=== PATIENT | male | born 1965 | race Caucasian/White ===

== ENCOUNTER 2018-09-26 09:37 | Observation (INO) ==
[2018-09-26] MEDS ORDERED: Ondansetron 4 MG/2 ML VIAL IVP STA (11:10)
[2018-09-26] MEDS ORDERED: 0.9 % Sodium Chloride 1,000 ML IVC STA (11:10)
[2018-09-26] MEDS ORDERED: *HR* HYDROmorphone (PF) 1 MG/ML SYRINGE IVP ONE (11:11)
--- NOTE | 2018-09-26 11:15 | Emergency Department Note ---
Disposition Clinical Impression: Atrial fibrillation with RVR Acute appendicitis Qualifiers: Acute appendicitis type: with localized peritonitis Appendicitis gangrene presence: unspecified whether gangrene present Appendicitis perforation presence: without perforation Appendicitis abscess presence: without abscess Qualified Code(s): K35.30 - Acute appendicitis with localized peritonitis, wi thout perforation or gangrene Disposition: Admitted As Inpatient Condition: Good Referrals: Jasmin Singh, CIRCULATION LIBRARIAN [Primary Care Provider] - Forms: ED Satisfaction Letter, Work/School Release Time of Disposition: 12:01 General Adult HPI - General Chief complaint: ED Abdominal Pain Stated complaint: staff room visit-appy Time Seen by Provider: 09/26/18 09:56 Source: EMS Limitations: no limitations Nursing Notes Reviewed: Yes Vital Signs Reviewed: Yes - History of Present Illness HPI Narrative: 52-year-old male with history of A. fib not on anticoagulation who presents emergency department as transfer from [facility] secondary to acute appendicitis. Patient states his symptoms have been worse over the last few days he also feels nauseated. He denies any chest pain, feeling short of breath, changes in medications or missed doses. He denies any cough, congestion, fever, chills. Pain Scale: 10 - Related Data Home Medications Medication Instructions Recorded Confirmed Acyclovir [Zovirax] 400 mg PO BID 07/08/18 09/26/18 Albuterol Sulfate [Ventolin Hfa] 2 puff PO Q6H PRN 07/08/18 09/26/18 Aspirin [Lo-Dose Aspirin EC] 81 mg PO DAILY 07/08/18 09/26/18 Atenolol [Tenormin] 25 mg PO BID 07/08/18 09/26/18 Atorvastatin [Lipitor] 40 mg PO HS 07/08/18 09/26/18 Ergocalciferol (VITAMIN D2) 50,000 units PO MO 07/08/18 09/26/18 [Vitamin D2] Gabapentin [Neurontin] 800 mg PO BID PRN 07/08/18 09/26/18 HYDROcodone/Acet 5/325 mg [[place] 1 tab PO BID PRN 07/08/18 09/26/18 5-325 mg] Ibuprofen [Motrin] 600 mg PO BID PRN 07/08/18 09/26/18 Loratadine [Allergy Relief] 10 mg PO DAILY 07/08/18 09/26/18 Tizanidine HCl 4 mg PO BID 07/08/18 09/26/18 Fluticasone/Vilanterol [Breo 1 each IH BID 09/26/18 09/26/18 Ellipta 100-25 Mcg INH] Allergies Allergy/AdvReac Type Severity Reaction Status Date / Time No Known Allergies Allergy Verified 07/08/18 14:00 Review of Systems: ROS per history of present illness, all other systems reviewed and negative or normal. All systems ED: reviewed and negative except as stated. Review of Systems: As Per HPI Past Medical History - Past Medical History Medical history: Reports: asthma, atrial fibrillation, hyperlipidemia, hypertension, other Surgical history: Reports: herniorrhaphy, orthopedic, other, other Psychiatric history: Reports: no psych history - Social History Smoking Status: Never smoker Smokeless Tobacco Status: No Alcohol use: Reports: occasionally Drug use: Reports: none Physical Exam General: Conversant. No apparent distress. Follow commands. Appears stated age. Neck: No JVD. Trachea midline. Neck supple. Eyes: PERRL. No scleral icterus. HENT: Normocephalic and atraumatic. Moist mucus membranes. Cardiovascular: Irregularly irregular. Normal S1 and S2. No murmurs appreciated. Normal capillary refill. Extremities well perfused with 2+ distal pulses bilaterally. No edema. Pulmonary: Normal and equal breath sounds bilaterally, anteriorly and posteriorly. No wheezes, rales, or rhonchi. Not in respiratory distress. Speaks in full sentences. Abdomen: Soft, nondistended. There is tenderness and guarding especially in the RLQ. Rebound present. Neuro: Alert and oriented x3. No slurred speech. No focal deficits noted. Skin: No rashes noted on visualized skin. Musculoskeletal: No bony abnormalities visualized. Moves all extremities. Psych: Normal mood. Pleasant. Makes appropriate eye contact. - General Limitations: no limitations General appearance: alert Course Vital Signs Temperature 98.5 F 09/26/18 09:42 Pulse Rate 118 09/26/18 09:42 Respiratory Rate 20 09/26/18 09:42 Blood Pressure 160/100 09/26/18 09:42 O2 Sat by Pulse Oximetry 97 09/26/18 09:42 Temperature 98.5 F 09/26/18 09:42 Pulse Rate 108 09/26/18 11:48 Respiratory Rate 16 09/26/18 11:48 Blood Pressure 146/95 09/26/18 11:48 O2 Sat by Pulse Oximetry 98 09/26/18 11:48 Oxygen Delivery Oxygen Delivery Room Air Medical Decision Making - MDM Narrative Medical decision making narrative: 52-year-old male with history of atrial fibrillation who is transferred from [facility] secondary to acute appendicitis seen on CT abd/pelvis. The patient was initially a staff room visit to be seen only by the surgeon but patient did develop atrial fibrillation with rapid ventricular rate with rate in the 120s intermittently up to the 140s. Patient has no chest pain or shortness of breath. His vital signs are otherwise stable. He does appear to be in pain. He was given 1 L fluid bolus and started on maintenance fluids prior to transpor t, given his acute appendicitis to believe his increased rate is likely from pain and slight dehydration therefore he was given 1 L fluid bolus as well as repeat dose of dilaudid. Chest x-ray shows no acute changes. Patient has no elevation in troponin or concerning EKG changes for ischemia. Surgery evaluated the patient and deemed him surgical candidate and requested addition of zosyn. At this point do not believe the patient requires further rate control given there is an active source of his increased rate. We will admit to surgeon, Dr. Webster who will take the patient to the operating room. Patient agrees and understands the course of treatment plan including plan for admission. - Medical Records Medical records reviewed: Yes I reviewed the patient's medical records. - Lab Data Lab results reviewed: Yes I reviewed the patient's lab results. Lab Results 09/26/18 09/26/18 Range/Units 11:20 11:20 PT 12.1 (9.4-12.1) Seconds INR 1.1 APTT 28.4 (26.0-36.0) Seconds Troponin I < 0.03 (< 0.04) ng/mL - Radiology Data Radiology results reviewed: Yes I reviewed the patient's radiology results. Chest X-Ray 09/26/18 10:59 IMPRESSION: Minimal left basilar atelectasis or pneumonitis. D/ / Kenneyd Coleman MD / Kennedy Coleman MD Interpreting Provider: Kennedy Coleman MD - EKG Data EKG #1 EKG attestation: Yes I reviewed and interpreted this EKG. EKG results narrative: Atrial fibrillation rate of 106. Normal axis. No acute ischemic ST or T-wave abnormalities. When compared with prior rate has increased otherwise AFib persists.
[2018-09-26] MEDS ORDERED: Piperacillin/Tazobactam 3.375 GM in 0.9 % Sodium Chloride Mini Bag 100 ML IVPB ONE (11:16)
--- NOTE | 2018-09-26 11:28 | Emergency Department Note ---
Disposition Clinical Impression: Atrial fibrillation with RVR Acute appendicitis Qualifiers: Acute appendicitis type: with localized peritonitis Appendicitis gangrene presence: unspecified whether gangrene present Appendicitis perforation presence: without perforation Appendicitis abscess presence: without abscess Qualified Code(s): K35.30 - Acute appendicitis with localized peritonitis, wi thout perforation or gangrene Disposition: Admitted As Inpatient Condition: Good Time of Disposition: 12:01 General Adult HPI - General Chief complaint: ED Abdominal Pain Stated complaint: staff room visit-appy Time Seen by Provider: 09/26/18 09:56 Source: EMS Limitations: no limitations - History of Present Illness Pain Scale: 10 - Related Data Home Medications Medication Instructions Recorded Confirmed Acyclovir [Zovirax] 400 mg PO BID 07/08/18 09/26/18 Albuterol Sulfate [Ventolin Hfa] 2 puff PO Q6H PRN 07/08/18 09/26/18 Aspirin [Lo-Dose Aspirin EC] 81 mg PO DAILY 07/08/18 09/26/18 Atenolol [Tenormin] 25 mg PO BID 07/08/18 09/26/18 Atorvastatin [Lipitor] 40 mg PO HS 07/08/18 09/26/18 Ergocalciferol (VITAMIN D2) 50,000 units PO MO 07/08/18 09/26/18 [Vitamin D2] Gabapentin [Neurontin] 800 mg PO BID PRN 07/08/18 09/26/18 HYDROcodone/Acet 5/325 mg [[place] 1 tab PO BID PRN 07/08/18 09/26/18 5-325 mg] Ibuprofen [Motrin] 600 mg PO BID PRN 07/08/18 09/26/18 Loratadine [Allergy Relief] 10 mg PO DAILY 07/08/18 09/26/18 Tizanidine HCl 4 mg PO BID 07/08/18 09/26/18 Fluticasone/Vilanterol [Breo 1 each IH BID 09/26/18 09/26/18 Ellipta 100-25 Mcg INH] Allergies Allergy/AdvReac Type Severity Reaction Status Date / Time No Known Allergies Allergy Verified 07/08/18 14:00 Past Medical History - Past Medical History Medical history: Reports: asthma, atrial fibrillation, hyperlipidemia, hypertension, other Surgical history: Reports: herniorrhaphy, orthopedic, other, other Psychiatric history: Reports: no psych history - Social History Smoking Status: Never smoker Smokeless Tobacco Status: No Alcohol use: Reports: occasionally Drug use: Reports: none Physical Exam - General Limitations: no limitations General appearance: alert Course Vital Signs Temperature 98.5 F 09/26/18 09:42 Pulse Rate 118 09/26/18 09:42 Respiratory Rate 20 09/26/18 09:42 Blood Pressure 160/100 09/26/18 09:42 O2 Sat by Pulse Oximetry 97 09/26/18 09:42 Temperature 99.2 F 09/26/18 16:33 Pulse Rate 87 09/26/18 16:33 Respiratory Rate 14 09/26/18 16:33 Blood Pressure 128/75 09/26/18 16:33 O2 Sat by Pulse Oximetry 100 09/26/18 16:33 Oxygen Delivery Oxygen Delivery Room Air Medical Decision Making - Lab Data Lab Results 09/26/18 09/26/18 Range/Units 11:20 11:20 PT 12.1 (9.4-12.1) Seconds INR 1.1 APTT 28.4 (26.0-36.0) Seconds Troponin I < 0.03 (< 0.04) ng/mL Attestation Statement - Attestation Attestation: I examined this patient and my medical decision-making was reviewed with the Resident Physician. I agree with the documented findings, disposition and treatment plan as described except to the extent set forth below. Patient 52-year-old gentleman is transferred to our facility from an outside facility after he was found to have appendicitis. The patient has prior history of atrial fibrillation upon arrival at our facility had atrial fibrillation with rapid ventricular response. The patient currently is not having any chest pain or shortness of breath states he is having pain in his right lower quadrant Physical exam patient is awake alert in mild pain distress the patient is tachycardic with a heart rate up to 120 but then will come down to 109 spontaneously. Patient's abdomen is tender to palpation with guarding and rebound present in the right lower quadrant Medical decision management the case was discussed with Dr. Webster the patient received IV Zosyn in the emergency department as well as IV fluids and pain control and that should hopefully help the patient's heart rate. The patient it will be taken to the operating room for a appendectomy
[2018-09-26 11:44] LABS: INR 1.1; Prothrombin Time 12.1 Seconds (9.4-12.1)
[2018-09-26 11:46] LABS: Activated Partial Thrombo Time 28.4 Seconds (26.0-36.0)
--- NOTE | 2018-09-26 11:50 | Acute Care Surgery H&P ---
Date of Encounter: 09/26/18 Time of Encounter: 11:45 Assessment and Plan (1) Acute appendicitis Current Visit: Yes Status: Acute 52M with acute appendicitis, sepsis with afib with RVR; NPO IVF IV abx or for appendectomy The assessment and plan as outlined above was discussed with the patient and/or family members who expressed understanding and agreement. All questions were answered. Qualifiers: Acute appendicitis type: with localized peritonitis Appendicitis gangrene presence: unspecified whether gangrene present Appendicitis perforation presence: without perforation Appendicitis abscess presence: without abscess Qualified Code(s): K35.30 - Acute appendicitis with localized peritonitis, without perforation or gangrene History of Present Illness Chief complaint: abdominal pain HPI: Mr. Reulas is a 52 year old male PMH significant for asthma, atrial fibrillation, hyperlipidemia, hypertension who presents with one day history of worsening abdominal pain located at the mid abdomen, non radiating, no alleviating factors, worse with moving. No associated fevers, but there was associated nausea. The pain rates a 8/10. A CT scan was obtained, which was reviewed by me, which demonstrated acute appendicitis with appendicoliths. Past Med Surg Social Fam HX - Past Medical History Medical history: asthma, atrial fibrillation, hyperlipidemia, hypertension, other Additional medical history: chronic back pain Psychiatric history: no psych history - Past Surgical History Surgical History: herniorrhaphy, orthopedic, other, other Additional surgical history: R wrist - Social History Smoking Status: Never smoker Smokeless Tobacco Status: No Alcohol use: occasionally Drug use: none - Additional Family History Additional family history: non contributory Medications and Allergies Acyclovir [Zovirax] 400 mg PO BID 07/08/18 [History] Albuterol Sulfate [Ventolin Hfa] 2 puff PO Q6H PRN 07/08/18 [History] Aspirin [Lo-Dose Aspirin EC] 81 mg PO DAILY 07/08/18 [History] Atenolol [Tenormin] 25 mg PO BID 07/08/18 [History] Atorvastatin [Lipitor] 40 mg PO HS 07/08/18 [History] Ergocalciferol (VITAMIN D2) [Vitamin D2] 50,000 units PO MO 07/08/18 [History] Gabapentin [Neurontin] 800 mg PO BID PRN 07/08/18 [History] HYDROcodone/Acet 5/325 mg [[place] 5-325 mg] 1 tab PO BID PRN 07/08/18 [History] Ibuprofen [Motrin] 600 mg PO BID PRN 07/08/18 [History] Loratadine [Allergy Relief] 10 mg PO DAILY 07/08/18 [History] Tizanidine HCl 4 mg PO BID 07/08/18 [History] Fluticasone/Vilanterol [Breo Ellipta 100-25 Mcg INH] 1 each IH BID 09/26/18 [History] Allergy/AdvReac Type Severity Reaction Status Date / Time No Known Allergies Allergy Verified 07/08/18 14:00 Review of Systems All systems PM: 12 point ROS negative besides HPI findings General Surgery Exam Initial Vital Signs Temp Pulse Resp BP Pulse Ox 98.5 F 118 20 160/100 97 09/26/18 09:42 09/26/18 09:42 09/26/18 09:42 09/26/18 09:42 09/26/18 09:42 - General physical appearance no distress - Eyes PERRL, normal ocular movement - ENT normocephalic - Neck trachea midline, no lymphadectomy - Respiratory normal expansion, normal respiratory effort - Cardiovascular Cardiovascular exam: Present: tachycardia, irregular rhythm - Abdomen Abdomen general surgery: Present: soft, tender, surgical scars Abdominal Tenderness: Present: RLQ (at mid abdomen and Mc Roca's point) - Integumentary Integumentary general surgery: Present: warm and dry, no abnormal pigmentation - Neurologic Present: CN 2-12 grossly intact - Musculoskeletal Present: normal posture - Psychiatric Psychiatric general surgery: Present: A&Ox3 Results - Labs All other labs normal. - Imaging CT scan - abdomen: report reviewed, image reviewed CT scan - pelvis: report reviewed, image reviewed
[2018-09-26] MEDS ORDERED: Ondansetron ODT 4 MG TAB.RAPDIS SL PRN ×2 (11:54→16:28)
[2018-09-26] MEDS ORDERED: D5% in 0.45% NACL w KCl 20 MEQ/1,000 ML MLS IVC SCH ×2 (12:00→16:28)
[2018-09-26] MEDS ORDERED: *HR* FentaNYL (PF) 100 MCG/2 ML VIAL ONE (12:19)
[2018-09-26] MEDS ORDERED: *HR* Midazolam HCl 2 MG/2 ML VIAL ONE (12:19)
[2018-09-26] MEDS ORDERED: *HR* Propofol 200 MG/20 ML VIAL IVP ONE (12:20)
[2018-09-26] MEDS ORDERED: Lidocaine -MPF 2% 2 ML VIAL ONE (12:20)
[2018-09-26] MEDS ORDERED: Ondansetron 4 MG/2 ML VIAL ONE (12:20)
[2018-09-26] MEDS ORDERED: Lidocaine HCL 4 ML Topical Solution (Laryng-O-Jet Kit Sterile Pak) TP ONE (12:20)
[2018-09-26] MEDS ORDERED: *HR* Rocuronium Bromide 50 MG/5 ML VIAL ONE (12:20)
--- NOTE | 2018-09-26 12:52 | Anesthesia Evaluation PreOp ---
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 (Probable TIA early 2018 without any seeking medical Attention.), Other (Chronic Back pain) Other Medical History: Diabetes Type II (borderline DM), GERD Anesthesia History: No Prior Anesthetic Complications, Past Anesthesia (Robotic Lap Taty 06/2018, R-wrist , Umbilial Hernia Repair) Alcohol Use: occasionally Drug use: none Medications and Allergies Acyclovir [Zovirax] 400 mg PO BID 07/08/18 [History] Albuterol Sulfate [Ventolin Hfa] 2 puff PO Q6H PRN 07/08/18 [History] Aspirin [Lo-Dose Aspirin EC] 81 mg PO DAILY 07/08/18 [History] Atenolol [Tenormin] 25 mg PO BID 07/08/18 [History] Atorvastatin [Lipitor] 40 mg PO HS 07/08/18 [History] Ergocalciferol (VITAMIN D2) [Vitamin D2] 50,000 units PO MO 07/08/18 [History] Gabapentin [Neurontin] 800 mg PO BID PRN 07/08/18 [History] HYDROcodone/Acet 5/325 mg [[place] 5-325 mg] 1 tab PO BID PRN 07/08/18 [History] Ibuprofen [Motrin] 600 mg PO BID PRN 07/08/18 [History] Loratadine [Allergy Relief] 10 mg PO DAILY 07/08/18 [History] Tizanidine HCl 4 mg PO BID 07/08/18 [History] Fluticasone/Vilanterol [Breo Ellipta 100-25 Mcg INH] 1 each IH BID 09/26/18 [History] Allergy/AdvReac Type Severity Reaction Status Date / Time No Known Allergies Allergy Verified 07/08/18 14:00 - Meds/Allergy Pre-op Review Medications Reviewed: Yes Allergies Reviewed: Yes Beta Blockers on Current Med List: No Anesthesia Results - Labs Laboratory Tests 09/26/18 09/26/18 09/26/18 08:08 08:08 11:20 WBC 13.3 H Hgb 16.1 Hct 45.6 Plt Count 178 INR 1.1 Sodium 135 L Potassium 4.0 Chloride 100 Carbon Dioxide 26 BUN 18 Est GFR (Non-Af Amer) > 60 Glucose 184 H Impressions Chest X-Ray 09/26/18 10:59 IMPRESSION: Minimal left basilar atelectasis or pneumonitis. D/ / Kennedy Coleman MD / Kennedy Coleman MD Interpreting Provider: Kennedy Coleman MD Laboratory Results 09/26/18 09/26/18 11:20 11:20 PT 12.1 INR 1.1 APTT 28.4 Troponin I < 0.03 - Imaging EKG: report reviewed (72bpm - ATRIAL FIBRILLATION SEPTAL MYOCARDIAL INFARCTION [40+ ms Q WAVE IN V1/V2], PROBABLY OLD Electronically Signed On 08-19-2018 17:40:19 EDT by Pamela Meade) Anesthesia Exam Vital Signs Temp Pulse Resp BP Pulse Ox 09/26/18 12:36 18 148/98 09/26/18 11:48 108 16 146/95 98 09/26/18 11:00 114 20 139/82 98 09/26/18 09:42 98.5 F 118 20 160/100 97 Intake and Output 09/25/18 09/26/18 09/26/18 23:59 07:59 15:59 Other: Stool Characteristics Normal for Patient Stool Color Brown Weight 90.718 kg Patient Weight 09/26/18 23:59 Weight 90.718 kg Height: 5'9" Weight: 200# BMI = 30 NPO (# of Hours): MNoc - HEENT Pupil (Motor): Pupils equal, EOMI Mallampati: III Teeth: Poor dentition Oral Opening: Greater than 3 - 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: Oriented 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 Krissy Billy MD
[2018-09-26] MEDS ORDERED: Acetaminophen IV 1,000 MG/100 ML INFUS..BTL ONE (13:09)
[2018-09-26] MEDS ORDERED: Famotidine 20 MG/2 ML VIAL ONE (13:09)
[2018-09-26] MEDS ORDERED: *HR* PHENYLEPHRINE 1,000 MCG/10 ML SYRINGE IVP ONE (13:46)
[2018-09-26] MEDS ORDERED: Neostigmine Methylsulfate 3 MG/3 ML SYRINGE ONE (14:11)
[2018-09-26] MEDS ORDERED: Ketorolac 30 MG/ML VIAL IVP ONE (14:57)
[2018-09-26] MEDS: *HR* HYDROmorphone (PF) 1 MG/ML SYRINGE IVP PRN ×4 (15:04→15:30)
--- NOTE | 2018-09-26 15:58 | Operative Note ---
Date of procedure: 09/26/18 Pre-op diagnosis: acute appendicitis Post-op diagnosis: same Procedure: laparoscopic appendectomy Implants: none Complications: none Anesthesia: GETA Local Anesthetics: 0.5% Sensorcaine HCL SubQ (cc) Surgeon: Charlie Webster Was there an district administrative assistant present: No Estimated blood loss (cc): 5 Specimen: appendix Condition: stable Disposition: PACU Procedure in Detail: The patient was brought into the operating room suite. The patient was placed in the supine position. Mechanical DVT prophylaxis was initiated. The patient underwent smooth induction of general endotracheal anesthesia. The patient was prepped and draped in the usual fashion. Preoperative antibiotics were given. A timeout was held identifying the correct patient, pathology, and procedure. Everyone was in agreement and we began a procedure. Incision to Mesenteric Window I started bycreating a supraumbilical incision and via open Little technique entered into the abdomen. I then used a Vicryl suture on a UR 6 needle in a [id number] fashion to reapproximate but not close the fascia. I then inserted the 10 trocar followed by the camera to visualize the intraabdominal cavity. I then created a 5 mm incision suprapubically and inserted the 5 mm trocar under direct visualization. Roughly 1 handbreadth lateral to the umbilical incision I created another 5 mm incision and inserted another 5 mm trocar under direct visualization. I then inserted the nontraumatic instruments into the 5 mm ports and began the procedure. I was able to identify the tinea coli coalescing at the base of the cecum to identify the appendix. Using the nontraumatic grasper I was able to grasp the appendix and then using the [place] dissector was able to create a mesenteric window. Mesenteric Window to Appendectomy I then inserted the nontraumatic grasper into the same mesenteric window to widen it. I then grasped the appendix and switched from the 10 mm camera to the 5 mm camera so that we can insert the stapler through the umbilical port. The teeth of the stapler through the mesenteric window. It should be stated that the stapler was a 45 mm bowel load stapler. It was positioned at the base of the appendix and I was able to confirm under direct visualization that the teeth contained no other structures such as the cecum. I then fired the stapler and resected the appendix from the base of the cecum. I then loaded up a vascular load stapler and then in the similar fashion did fire across the mesentery. Retrieval to Closure I then inserted the Endo Catch bag to retrieve the specimen which was intact upon retrieval. I then switched back to the 10 mm camera and inserted the nontraumatic grasper as well as a suction-key punch operator into the 5 mm ports. And under direct visualization I was able to appreciate the staple line of the mesoappendix as well as the staple line of the base of the cecum. There was no obvious leaking nor bleeding. The pelvis did not have any collection of fluid. I then concluded the procedure, turned off the insufflation, removed the trochars under direct visualization, and then closed the umbilical fascia using the Vicryl suture that was placed at the beginning. I then closed all incisions with interrupted 4-0 Monocryl. And then sealed with Dermabon. It should be stated that I did use 0.5% Marcaine as a local anesthetic. The patient to lerated the procedure well and did go back to PACU in stable condition.
[2018-09-26] MEDS ORDERED: Piperacillin/Tazobactam 3.375 GM in 0.9 % Sodium Chloride Mini Bag 100 ML IVPB SCH (16:00)
--- NOTE | 2018-09-26 19:20 | Anesthesia Evaluation Post Op ---
Date of Encounter: 09/26/18 Time of Encounter: 15:40 - Vital Signs Vital Signs: Vital Signs Temp Pulse Resp BP Pulse Ox 09/26/18 15:39 99.1 F 86 14 122/79 97 09/26/18 15:29 98.8 F 90 16 122/81 99 09/26/18 15:19 81 16 129/85 97 09/26/18 15:09 87 16 137/86 97 09/26/18 14:59 98.6 F 85 14 147/98 98 09/26/18 14:49 86 14 137/82 100 09/26/18 14:39 87 14 115/82 100 09/26/18 14:29 98.2 F 86 14 124/79 100 09/26/18 12:36 18 148/98 09/26/18 11:48 108 16 146/95 98 09/26/18 11:00 114 20 139/82 98 09/26/18 09:42 98.5 F 118 20 160/100 97 Intake and Output 09/26/18 09/26/18 09/26/18 07:59 15:59 23:59 Output Total 2 / 2 Balance -2 / -2 Output: Estimated Blood Loss 2 / 2 Other: Stool Characteristics Normal for Patient Stool Color Brown Weight 90.718 kg Blood Glucose* 136 Patient Weight 09/26/18 23:59 Weight 90.718 kg - Lungs Lungs: Clear Ascult./Percussion - Airway Airway: Non-obstructed - Cardiovascular Baseline Rhythm - Mental Status Mental Status: Alert & Oriented, Answers Appropriately - Pain Pain Scale: 4 Pain Scale used: Numeric (1 - 10) - Nausea Vomiting Nausea Vomiting: Not Present - Hydration Hydration: Ice chips, Able to void, Has not voided - Discharge PostOp Status: Transfer Patient to floor Anes Supervising Prov Stmt: PT seen/evaluated, VSS and has met criteria for discharge to floor. - MD Mariajose
[2018-09-26] MEDS: Acyclovir 200 MG CAPSULE PO SCH (19:38)
[2018-09-26] MEDS: Piperacillin/Tazobactam 3.375 GM in 0.9 % Sodium Chloride Mini Bag 100 ML IVPB SCH (19:39)
[2018-09-26] MEDS: tiZANidine 4 MG TABLET PO SCH (19:39)
[2018-09-26] MEDS: *HR* HYDROcodone/Acet 5/325 mg TABLET PO PRN (21:12)
[2018-09-26] MEDS: Gabapentin 400 MG CAPSULE PO SCH (21:12)
[2018-09-26] MEDS: Budesonide/Formoterol 80/4.5 1 PUFF INH IH SCH (23:17)
[2018-09-26] MEDS: Ibuprofen 600 MG TABLET PO PRN (23:44)
[2018-09-27] MEDS: Piperacillin/Tazobactam 3.375 GM in 0.9 % Sodium Chloride Mini Bag 100 ML IVPB SCH ×2 (03:18→11:59)
[2018-09-27] MEDS: *HR* HYDROcodone/Acet 5/325 mg TABLET PO PRN (03:21)
[2018-09-27] MEDS: Budesonide/Formoterol 80/4.5 1 PUFF INH IH SCH ×2 (07:59→20:31)
--- NOTE | 2018-09-27 10:01 | AcuteCareSurgery Progress Note ---
Date of Encounter: 09/27/18 Time of Encounter: 09:58 - Assessment and Plan (1) Acute appendicitis Current Visit: Yes Status: Acute 52M POD #1 s/p lap appy 2/2 acute appendicitis, with necrosis; tolerating diet; concern for possible suicide cont diet cont IV abx pain control with current regimen cont with sitter; awaiting psych eval activity as tolerated IS usage Qualifiers: Acute appendicitis type: with localized peritonitis Appendicitis gangrene presence: with gangrene Appendicitis perforation presence: without perforation Appendicitis abscess presence: without abscess Qualified Code(s): K35.31 - Acute appendicitis with localized peritonitis and gangrene, without perforation Subjective Patient reports: no new complaints, feels better, still having pain, pain is less, tolerating a regular diet, fever Objective Vital Signs - Last 8 Hours Temp Pulse Resp BP Pulse Ox 09/27/18 08:00 16 95 09/27/18 07:00 98.6 F 79 15 88/57 96 09/27/18 03:00 100.1 F H 86 17 85/62 95 Intake and Output 09/26/18 09/27/18 09/27/18 23:59 07:59 15:59 Intake Total 340 / 340 480 / 480 Output Total 350 / 352 Balance -10 / -12 480 / 480 Intake: IV Fluids 100 / 100 Zosyn 3.375 GM In 0.9 % Sodium 100 / 100 Chloride (Mini-Bag +) 100 ML @ 25 mls/hr IVPB Q8H [facility] Rx#: [id number] Oral 240 / 240 480 / 480 Output: Urine 350 / 350 Other: Meal Nourishment/Supplement Breakfast Percent of Meal Consumed 50% 100% - Respiratory normal expansion, normal respiratory effort - Cardiovascular Cardiovascular exam: Present: RRR - Abdomen Abdomen: Present: soft, tender (appropriately tender; ) - Incision Incision: Present: clean and dry, intact - Neurologic CN 2-12 grossly intact - Psychiatric oriented to time, oriented to person, oriented to place Consult Discharge Plan - Plan Referrals: Jasmin Singh, MICE RAISER [Primary Care Provider] -
[2018-09-27] MEDS: Gabapentin 400 MG CAPSULE PO SCH ×2 (10:32→21:02)
[2018-09-27] MEDS: tiZANidine 4 MG TABLET PO SCH ×2 (10:33→21:03)
[2018-09-27] MEDS: Loratadine 10 MG TABLET PO SCH (10:33)
[2018-09-27] MEDS: Acyclovir 200 MG CAPSULE PO SCH ×2 (10:43→21:03)
--- NOTE | 2018-09-27 12:58 | Consult Note ---
Date of Encounter: 09/27/18 Time of Encounter: 12:53 Assessment & Recommendation (1) Major depression Current visit: Yes Status: Acute Assessment & Recommendation: Client has SI without intent or plan. Do not think he needs a sitter to remain safe in the hospital. Has never received mental health care before but is open to the idea now. If he is going to remain in the hospital can start Zoloft 25mg daily. Will need linked with an outpatient psychiatrist and therapist prior to discharge. Recommend a [employer] Teacher consult to set him up with appointments- client states he would prefer to see someone in [place], [place]. Suspect he can be discharged to follow up as an outpatient once medically stable. However, given his level of sedation today would prefer to see him one more time prior to discharge. Please call when client is ready to be discharged. Qualifiers: Major depression recurrence: recurrent Active/Remission status: currently active Major depression episode severity: severe Psychotic features: without psychotic features Qualified Code(s): F33.2 - Major depressive disorder, recurrent severe without psychotic features History of Present Illness Requesting Physician: Charlie Webster MD Reason for consult: suicidal ideation History of present illness: Mr. Ruelas is a 52 year old male who was admitted for acute appendicitis. Reported to primary team that he was having suicidal thoughts as recently as two weeks ago. On eval today client is very sleepy. States the pain medications are making him tired. He was cooperative with the assessment but difficult to understand due to slurring words and nodding off. Reports he has experienced SI off and on for the last couple of years. No current intent or plan. Has gone to a bridge before and contemplated jumping off but no actual attempts. Client has never been hospitalized for mental illness. Client has never seen a psychiatrist or therapist. No prior med trials or treatment for depression. Client states his sisters are treated for depression but he does not know what they take. Client states his biggest stressors are his physical health, fighting with his ex-, and financial issues. Denies alcohol use or drugs of abuse. Open to the idea of starting treatment for depression. CC: Charlie Webster MD Past Med Surg Social Fam HX - Past Medical History Medical history: asthma, atrial fibrillation, COPD, GERD, hyperlipidemia, hypertension, other - Past Psychiatric History Psychiatric history: Reports: no psych history Family psychiatric history: Yes Family Psychiatric History Details: sisters-depression Family History of Suicide: None - Past Surgical History Surgical History: cholecystectomy, herniorrhaphy - Social History Smoking Status: Never smoker Smokeless Tobacco Status: No Alcohol use: occasionally Drug use: none Medications & Allergies Acyclovir [Zovirax] 400 mg PO BID 07/08/18 [History] Albuterol Sulfate [Ventolin Hfa] 2 puff PO Q6H PRN 07/08/18 [History] Aspirin [Lo-Dose Aspirin EC] 81 mg PO DAILY 07/08/18 [History] Atenolol [Tenormin] 25 mg PO BID 07/08/18 [History] Atorvastatin [Lipitor] 40 mg PO HS 07/08/18 [History] Ergocalciferol (VITAMIN D2) [Vitamin D2] 50,000 units PO MO 07/08/18 [History] Gabapentin [Neurontin] 800 mg PO BID PRN 07/08/18 [History] HYDROcodone/Acet 5/325 mg [[place] 5-325 mg] 1 tab PO BID PRN 07/08/18 [History] Ibuprofen [Motrin] 600 mg PO BID PRN 07/08/18 [History] Loratadine [Allergy Relief] 10 mg PO DAILY 07/08/18 [History] Tizanidine HCl 4 mg PO BID 07/08/18 [History] Fluticasone/Vilanterol [Breo Ellipta 100-25 Mcg INH] 1 each IH BID 09/26/18 [History] Allergy/AdvReac Type Severity Reaction Status Date / Time No Known Allergies Allergy Verified 07/08/18 14:00 Review of Systems Constitutional: Reports: other Eyes: Denies: eye pain, vision change Ears, Nose, Throat: Denies: ear pain, throat pain, dental pain, hearing loss, congestion Cardiovascular: Denies: chest pain, palpitations, dyspnea on exertion Respiratory: Denies: cough, dyspnea, wheezes Gastrointestinal: Reports: abdominal pain Genitourinary male: Denies: urgency, dysuria, frequency, genital lesions Musculoskeletal: Denies: joint swelling, joint pain Integumentary: Denies: rash, lesions, pruritus Neurological: Denies: headache, weakness, numbness, memory loss Endocrine: Denies: fatigue, heat or cold intolerance Hematologic/Lymphatic: Denies: easy bruising, lymphadenopathy Allergic/Immunologic: Denies: urticaria, itchy eyes Psychiatry Exam - Constitutional Vitals: Temp Pulse Resp BP Pulse Ox 98.6 F 79 16 88/57 95 09/27/18 07:00 09/27/18 07:00 09/27/18 08:00 09/27/18 07:00 09/27/18 08:00 General appearance: age & developmentally appropriate, well-groomed, well- nourished - Musculoskeletal Station: relaxed Strength & Tone: normal for patient - Psychiatric Patient Orientation: Yes Person, Yes Time, Yes Place Level of alertness: Sedated Behavior: calm, cooperative Psychomotor activity: Normal Eye Contact: Maintains Eye Contact Mood Description: Depressed Affect description: congruent with mood Speech Volume: Soft/Quiet Speech pattern: mumbled Language & Vocabulary: consistent with education Thought Process: Linear Thought Content: Yes Suicidal ideation, No Homicidal ideation, No Overt delusions Perceptual Disturbances: No Auditory hallucinations, No Visual hallucinations Attention Span Ability: Unable to Sustain Attention Memory Description: Grossly Intact Patient Reliability: Reliable Historian Fund of knowledge: Yes abstraction ability, Yes aware of current events Intelligence Estimate: Average Judgment: Fair Insight: Partial Results - Labs Labs: Laboratory Last Values PT 12.1 Seconds (9.4-12.1) 09/26/18 11:20 INR 1.1 09/26/18 11:20 APTT 28.4 Seconds (26.0-36.0) 09/26/18 11:20 Troponin I < 0.03 ng/mL (< 0.04) 09/26/18 11:20 Consult Discharge Plan - Plan Referrals: Jasmin Singh, CUSTOMER SPECIALIST [Primary Care Provider] -
[2018-09-27] MEDS: Ibuprofen 600 MG TABLET PO PRN (15:59)
[2018-09-27] MEDS: 0.9 % Sodium Chloride 1,000 ML IVC SCH ×2 (16:00→18:57)
[2018-09-28] MEDS: *HR* HYDROcodone/Acet 5/325 mg TABLET PO PRN (02:47)
[2018-09-28] MEDS: Budesonide/Formoterol 80/4.5 1 PUFF INH IH SCH ×2 (07:36→22:15)
[2018-09-28] MEDS: Ibuprofen 600 MG TABLET PO PRN (09:40)
[2018-09-28] MEDS: Loratadine 10 MG TABLET PO SCH (09:40)
[2018-09-28] MEDS: Gabapentin 400 MG CAPSULE PO SCH ×2 (09:42→21:33)
[2018-09-28] MEDS: tiZANidine 4 MG TABLET PO SCH ×2 (09:42→21:33)
[2018-09-28] MEDS: Acyclovir 200 MG CAPSULE PO SCH ×2 (09:43→21:33)
--- NOTE | 2018-09-28 10:05 | Discharge Summary ---
<Tamia Cruz - Last Filed: 09/28/18 15:52> Orders not resulted at time of discharge: Pending orders 09/26/18 14:14 Surgical Pathology [PTH] Routine Date of Encounter: 09/28/18 Time of Encounter: 10:01 - Discharge Diagnosis (1) Acute appendicitis Priority: Primary Status: Resolved Qualifiers: Acute appendicitis type: with localized peritonitis Appendicitis gangrene presence: with gangrene Appendicitis perforation presence: without perforation Appendicitis abscess presence: without abscess Qualified Code(s): K35.31 - Acute appendicitis with localized peritonitis and gangrene, without perforation (2) Major depression Priority: Secondary Status: Acute Qualifiers: Major depression recurrence: recurrent Active/Remission status: currently active Major depression episode severity: severe Psychotic features: without psychotic features Qualified Code(s): F33.2 - Major depressive disorder, recurrent severe without psychotic features General Surgery Exam Initial Vital Signs Temp Pulse Resp BP Pulse Ox 98.5 F 118 20 160/100 97 09/26/18 09:42 09/26/18 09:42 09/26/18 09:42 09/26/18 09:42 09/26/18 09:42 - General physical appearance no distress, moderate pain (controlled) - ENT poor mcfp, atraumatic, normocephalic - Respiratory normal expansion, normal respiratory effort - Abdomen Abdomen general surgery: Present: bowel sounds present, soft, tender (expected postoperative) - Incision Incision: Present: clean and dry, intact - Integumentary Integumentary general surgery: Present: warm and dry - Neurologic Present: normal coordination, normal sensation - Musculoskeletal Present: normal gait, normal posture - Psychiatric Psychiatric general surgery: Present: appropriate, oriented to person, oriented to place, oriented to time, speech is normal, memory intact - Hospital Course Hospital course: Mr. Ruelas is a 52 year old male 09/26/2018 with findings consistent with acute appendicitis. He was taken to the operating room on the same day where he underwent an uncomplicated laparoscopic appendectomy by Dr. Webster. On 09/27/2018 reported to his nurse that he had had suicidal ideation approximately 2 weeks ago. He notes he is having stressors including fighting with his ex- and financial issues. He reports going to a bridge and contemplated jumping but no actual attempts. Psychiatry has been consulted and started the patient on Zoloft. From a surgical perspective he is recovering as expected. He is ambulating avoiding without difficulty, tolerating a diet without nausea or vomiting, vital signs are stable, and he is afebrile. We will begin discharge planning to home with a follow-up in approximately 2 weeks. He will also be set up with social media intern/psychiatry in [facility] as an outpatient. OARRS has been reviewed and patient is noted to be on chronic prescribed [place]. He can continue this for discomfort if needed. Ibuprofen has also been provided. In addition a 30 day supply of Carafate has been provided as this was helpful with nausea and epigastric pain. A conditional d/c order has been placed pending psych re-eval and SW with follow-up in place. - Time Spent with Patient Total time spent providing and/or coordinating discharge services: - Discharge Medications Prescriptions: New Sucralfate [Carafate] 1 gm PO QIDAC #120 tablet Docusate Sodium [Colace] 100 mg PO BID PRN #30 capsule PRN Reason: Contstipation Ibuprofen 800 mg PO Q8H PRN #30 tablet PRN Reason: Postsurgical pain Ondansetron ODT [Zofran ODT] 4 mg SL Q4HR PRN #30 tab.rapdis PRN Reason: Nausea Sertraline [Zoloft] 25 mg PO DAILY #30 tablet Continued Acyclovir [Zovirax] 400 mg PO BID Aspirin [Lo-Dose Aspirin EC] 81 mg PO DAILY Atenolol [Tenormin] 25 mg PO BID Atorvastatin [Lipitor] 40 mg PO HS Ergocalciferol (VITAMIN D2) [Vitamin D2] 50,000 units PO MO Gabapentin [Neurontin] 800 mg PO BID PRN PRN Reason: EXCESSIVE PAIN HYDROcodone/Acet 5/325 mg [[place] 5-325 mg] 1 tab PO BID PRN PRN Reason: Pain Loratadine [Allergy Relief] 10 mg PO DAILY Tizanidine HCl 4 mg PO BID Albuterol Sulfate [Ventolin Hfa] 2 puff PO Q6H PRN PRN Reason: Shortness Of Breath Fluticasone/Salmeterol [Airduo Respiclick 113-14 Mcg] 1 each IH BID Omeprazole [PriLOSEC] 20 mg PO BID Allopurinol [Zyloprim 100 MG] 100 mg PO DAILY Diclofenac Sodium [Voltaren] 50 mg PO DAILY #0 Discontinued Ibuprofen [Motrin] 600 mg PO BID PRN PRN Reason: Pain Home Medications: Acyclovir [Zovirax] 400 mg PO BID 07/08/18 [History] Albuterol Sulfate [Ventolin Hfa] 2 puff PO Q6H PRN 07/08/18 [History] Aspirin [Lo-Dose Aspirin EC] 81 mg PO DAILY 07/08/18 [History] Atenolol [Tenormin] 25 mg PO BID 07/08/18 [History] Atorvastatin [Lipitor] 40 mg PO HS 07/08/18 [History] Ergocalciferol (VITAMIN D2) [Vitamin D2] 50,000 units PO MO 07/08/18 [History] Gabapentin [Neurontin] 800 mg PO BID PRN 07/08/18 [History] HYDROcodone/Acet 5/325 mg [[place] 5-325 mg] 1 tab PO BID PRN 07/08/18 [History] Loratadine [Allergy Relief] 10 mg PO DAILY 07/08/18 [History] Tizanidine HCl 4 mg PO BID 07/08/18 [History] Allopurinol [Zyloprim 100 MG] 100 mg PO DAILY 09/27/18 [History] Fluticasone/Salmeterol [Airduo Respiclick 113-14 Mcg] 1 each IH BID 09/27/18 [History] Omeprazole [PriLOSEC] 20 mg PO BID 09/27/18 [History] Diclofenac Sodium [Voltaren] 50 mg PO DAILY #0 09/28/18 [Rx] Docusate Sodium [Colace] 100 mg PO BID PRN #30 capsule 09/28/18 [Rx] Ibuprofen 800 mg PO Q8H PRN #30 tablet 09/28/18 [Rx] Ondansetron ODT [Zofran ODT] 4 mg SL Q4HR PRN #30 tab.rapdis 09/28/18 [Rx] Sertraline [Zoloft] 25 mg PO DAILY #30 tablet 09/28/18 [Rx] Sucralfate [Carafate] 1 gm PO QIDAC #120 tablet 09/28/18 [Rx] Allergies/Adverse Reactions: Allergy/AdvReac Type Severity Reaction Status Date / Time No Known Allergies Allergy Verified 09/27/18 16:16 Date of admission: 09/26/18 12:39 Primary care physician: Jasmin Snigh CNP Consults: 09/26/18 16:25 Consult to Multifocal Lens Inspector [CONS] Stat Reason for SW Consult: high suicide risk. pt stood on bridge but decided not to jump. there's a bridge in front of pt's house. 09/26/18 16:28 Consult to Psychiatry [CONS] Stat Consulting Provider: Psychiatry Tess Reason consult: Other Other reason and/or additional details: contemplated suicide 2 weeks ago Time Notified: 16:29 Call Completed: Yes Discharging clinician: Anthony Mora (Vitor Cruz, FOOD SCIENCE PROFESSOR) Anticipated date of discharge: 09/28/18 - Impressions ITS Impressions Chest X-Ray 09/26/18 10:59 IMPRESSION: Minimal left basilar atelectasis or pneumonitis. D/ / Kennedy Coleman MD / Kennedy Coleman MD Interpreting Provider: Kennedy Coleman MD - Patient Status Disposition: Home, Self-Care Condition: Good Functional capacity at discharge: independent ambulation Overall status at discharge: patient is progressing back to baseline - Discharge Instructions Instructions: Depression (GEN), Laparoscopic Appendectomy (DC) Follow Up With: Jasmin Singh CNP [Primary Care Provider] - David Mckeon [Partnered Physician] - 10/13/18 9:20 am Additional Instructions: General Surgical Discharge Instructions 1. No pushing, pulling, or lifting greater than 15 lbs for 2-4 weeks (depending upon procedure). 2. You may remove your dressings and shower beginning today, but no tub baths, soaking, or swimming for 2 weeks. 3. No driving for two weeks unless otherwise specified and then you may resume driving when you are off narcotics and are safe to react in a car. 4. Take ibuprofen every 8 hours for discomfort. If this does not relieve discomfort, you may take your at home/chronic hydrocodone acetaminophen. Eat a small snack with pain medication as this will help reduce the risk of nausea. Take narcotics as directed. Do not take more narcotics then directed and do not share your narcotics with any other person. Do not drink alcohol while on narcotics. You can take the Zofran/ondansetron if needed for nausea or with a dose of narcotics to prevent nausea. 5. Take stool softeners (Colace) or a water based laxative (Miralax) while taking narcotics. You may hold for loose stools. 6. Report any fevers greater than 100.5F, increase abdominal discomfort, drainage that looks like pus, increased redness or pain at the surgical site, or any vomiting. 7. Report any pain in the calves, shortness of breath, or rapid heartbeat. 8. Follow-up in the office as directed. 9. If you were prescribed antibiotics, do not stop them without talking to your provider. - Diet and Activity Activity: increase activity as tolerated Diet: advance to your usual diet <Anthony Mora - Last Filed: 09/28/18 18:32> Orders not resulted at time of discharge: Pending orders 09/26/18 14:14 Surgical Pathology [PTH] Routine Date of Encounter: 09/28/18 General Surgery Exam Initial Vital Signs Temp Pulse Resp BP Pulse Ox 98.5 F 118 20 160/100 97 09/26/18 09:42 09/26/18 09:42 09/26/18 09:42 09/26/18 09:42 09/26/18 09:42 - Hospital Course Hospital course: Mr. Ruelas is a 52 year old male - Time Spent with Patient Total time spent providing and/or coordinating discharge services: Date of admission: 09/26/18 12:39 Primary care physician: Jasmin Singh CNP Consults: 09/26/18 16:25 Consult to Multifocal Lens Inspector [CONS] Stat Reason for SW Consult: high suicide risk. pt stood on bridge but decided not to jump. there's a bridge in front of pt's house. 09/26/18 16:28 Consult to Psychiatry [CONS] Stat Consulting Provider: Psychiatry Tess Reason consult: Other Other reason and/or additional details: contemplated suicide 2 weeks ago Time Notified: 16:29 Call Completed: Yes - Impressions ITS Impressions Chest X-Ray 09/26/18 10:59 IMPRESSION: Minimal left basilar atelectasis or pneumonitis. D/ / Kennedy Coleman MD / Kennedy Coleman MD Interpreting Provider: Kennedy Coleman MD - Attending Attestation I have personally performed a face to face evaluation on this patient. I have reviewed and agree with the care plan. History and Exam by me shows: The patient is seen and evaluated this afternoon. He had successful CAT scan drainage of periappendiceal abscess. We strongly recommended that the patient stay in the hospital for IV antibiotics until his white blood cell count normalized. The patient made an informed decision to leave the hospital we transitioned his antibiotics to oral. We will follow him closely as an outpatient. Anthony Mora MD FACS
--- NOTE | 2018-09-28 11:07 | Acute Care Surgery Event Note ---
Date of Encounter: 09/28/18 Time of Encounter: 10:15 Pt appears to be having dyspepsia. Will adjust medications, schedule doses to see if this is effective. D/c this afternoon pending resolution and psych recommendations.
[2018-09-28] MEDS: Ondansetron ODT 4 MG TAB.RAPDIS SL SCH ×4 (13:03→21:37)
[2018-09-28] MEDS: Simethicone 80 MG TAB.CHEW PO SCH ×3 (13:11→21:32)
[2018-09-28] MEDS: Sucralfate 1 GM TABLET PO SCH ×3 (13:12→21:33)
[2018-09-28] MEDS: Pantoprazole 40 MG VIAL IVP SCH (13:13)
[2018-09-29] MEDS: Ondansetron ODT 4 MG TAB.RAPDIS SL SCH ×3 (04:15→11:23)
[2018-09-29] MEDS: *HR* HYDROcodone/Acet 5/325 mg TABLET PO PRN (04:37)
--- NOTE | 2018-09-29 06:23 | Electrocardiograph Report ---
[facility] Test Date: 2018-09-26 Pat Name: Luis Ruelas Department: [id number] Room: 3A63 Gender: M Director Investor Relations: : 1965 Requested By: Radha Mercado Order Number: [id number] Reading MD: Aung Liang Measurements Intervals [place] Rate: 106 P: CO: QRS: 4 QRSD: 86 T: 51 QT: 318 QTc: 423 Interpretive Statements Atrial fibrillation Electronically Signed On 09-29-2018 6:21:45 EDT by Aung Liang
[2018-09-29] MEDS: Budesonide/Formoterol 80/4.5 1 PUFF INH IH SCH (07:41)
[2018-09-29] MEDS: Simethicone 80 MG TAB.CHEW PO SCH ×2 (07:46→15:23)
[2018-09-29] MEDS: Acyclovir 200 MG CAPSULE PO SCH (07:46)
[2018-09-29] MEDS: tiZANidine 4 MG TABLET PO SCH (07:46)
[2018-09-29] MEDS: Loratadine 10 MG TABLET PO SCH (07:46)
[2018-09-29] MEDS: Pantoprazole 40 MG VIAL IVP SCH (07:47)
[2018-09-29] MEDS: Gabapentin 400 MG CAPSULE PO SCH (07:47)
[2018-09-29] MEDS: Sucralfate 1 GM TABLET PO SCH ×2 (07:47→11:23)
[2018-09-29 08:07] LABS: Basophils % 0.1 %; Eosinophils # 0.1 K/mcL (0.0-0.6); Eosinophils % 0.9 %; Hematocrit 35.4 % (37.5-50.1); Hemoglobin 12.2 g/dL (12.9-16.9); Immature Granulocytes % 0.4 % (0-4); Lymphocytes # 1.1 K/mcL (0.6-4.6); Lymphocytes % 11.3 %; Mean Corpuscular HGB Conc 34.5 g/dL (31.6-35.5); Mean Corpuscular Volume 90.1 fL (83.0-100.0); Mean Platelet Volume 10.5 fL (9.4-12.4); Monocytes # 0.7 K/mcL (0.0-1.3); Monocytes % 7.8 %; Neutrophils # 7.4 K/mcL (1.6-8.9); Platelet Count 143 K/mcL (140-400); Red Blood Count 3.93 M/mcL (4.19-5.50); Red Cell Distribution Width 12.9 % (11.5-14.5); Segmented Neutrophils % 79.5 %; White Blood Count 9.3 K/mcL (4.3-11.1)
[2018-09-29 08:27] LABS: BUN/Creatinine Ratio 18 (6-26); Blood Urea Nitrogen 21 mg/dL (6-20); Calcium 8.9 mg/dL (8.6-10.3); Carbon Dioxide 25 mEq/L (23-29); Chloride 101 mEq/L (98-107); Glucose 138 mg/dL (70-105); Osmolality,Calculated 279 (280-300); Potassium 3.6 mEq/L (3.5-5.1); Sodium 132 mEq/L (136-145); eGFR For African Americans > 60 (> 60); eGFR For Non-African Americans > 60 (> 60)
--- NOTE | 2018-09-29 09:42 | Acute Care Surgery Event Note ---
Date of Encounter: 09/29/18 Time of Encounter: 09:40 Patient did not discharge yesterday has he was not reevaluated by psych. We have called them again today and asked them to see the patient as soon as possible so that he can be discharged. VANESSA Easley the setting up his follow- up with [facility] in [place]. He is noted to have low-grade fevers overnight that improved without intervention except for incentive spirometry. I did review with patient the need to continue incentive spirometry upon discharge and he verbalizes understanding. He is okay to discharge as soon as psych has seen the patient and placed the recommendations.
[2018-09-29] MEDS: Ibuprofen 600 MG TABLET PO PRN (11:22)
[2018-09-29 12:40] VITALS: BP 127/74
== END 2018-09-29 16:41 | disposition home or self-care (01) ==
LOC: 3ANU 09:37 → EMEROOARM 09:37 → 3ANU 12:36
PROVIDERS: ADMIT Surgery; ATTEND Surgery

== ENCOUNTER 2019-04-12 20:33 | Observation (INO) ==
[2019-04-12] MEDS ORDERED: Naloxone 0.4 MG/ML INJ IVP PRN (22:49)
[2019-04-12] MEDS ORDERED: *HR* Heparin 5,000 UNIT/ML VIAL IVP ONE (23:19)
[2019-04-12] MEDS ORDERED: *HR* Heparin 5,000 UNIT/ML VIAL IVP PRN ×2 (23:19)
[2019-04-13] MEDS ORDERED: 0.9 % Sodium Chloride w KCl 20 MEQ/1,000 ML MLS IVC SCH (00:30)
[2019-04-13] MEDS: DilTIAZem 50 MG in 0.9 % Sodium Chloride 40 ML IVC SCH (00:31)
[2019-04-13 00:33] LABS: Hematocrit 46.5 % (37.5-50.1); Hemoglobin 16.4 g/dL (12.9-16.9); Mean Corpuscular HGB Conc 35.3 g/dL (31.6-35.5); Mean Corpuscular Hemoglobin 30.5 pg (28.0-33.3); Mean Corpuscular Volume 86.4 fL (83.0-100.0); Mean Platelet Volume 10.8 fL (9.4-12.4); Platelet Count 202 K/mcL (140-400); Red Blood Count 5.38 M/mcL (4.19-5.50); Red Cell Distribution Width 13.2 % (11.5-14.5)
[2019-04-13 01:14] LABS: Bilirubin,Urine Negative (Negative); Blood,Urine Negative (Negative); Clarity,Urine Clear (Clear); Color,Urine Yellow (Yellow); Glucose,Urine (UA) Normal (Normal); Ketones,Urine Negative (Negative); Leukocyte Esterase,Urine Negative (Negative); Nitrite,Urine Negative (Negative); Protein,Urine Negative (Neg-Trace); Specific Gravity,Urine > 1.030 (1.010-1.025); Urobilinogen,Urine Normal (Normal)
[2019-04-13] MEDS ORDERED: Ondansetron 4 MG/2 ML VIAL IVP PRN (02:55)
[2019-04-13 03:46] LABS: Basophils # 0.1 K/mcL (0.0-0.2); Basophils % 0.6 %; Eosinophils # 0.2 K/mcL (0.0-0.6); Eosinophils % 1.6 %; Hematocrit 45.5 % (37.5-50.1); Hemoglobin 15.6 g/dL (12.9-16.9); Lymphocytes # 2.7 K/mcL (0.6-4.6); Lymphocytes % 28.5 %; Mean Corpuscular HGB Conc 34.3 g/dL (31.6-35.5); Mean Corpuscular Hemoglobin 30.8 pg (28.0-33.3); Mean Corpuscular Volume 89.9 fL (83.0-100.0); Mean Platelet Volume 10.7 fL (9.4-12.4); Monocytes % 9.9 %; Neutrophils # 5.6 K/mcL (1.6-8.9); Platelet Count 193 K/mcL (140-400); Red Blood Count 5.06 M/mcL (4.19-5.50); Red Cell Distribution Width 13.2 % (11.5-14.5); Segmented Neutrophils % 58.4 %; White Blood Count 9.6 K/mcL (4.3-11.1)
[2019-04-13 03:48] LABS: INR 1.4; Prothrombin Time 16.1 Seconds (9.4-12.1)
[2019-04-13] MEDS: Acetaminophen 325 MG TABLET PO PRN ×2 (03:52→10:31)
[2019-04-13] MEDS: Heparin 25,000 UNIT/250 ML D5W 25,000 UNIT/250 ML IV.SOLN IVC SCH (03:53)
[2019-04-13 04:17] LABS: BUN/Creatinine Ratio 15 (6-26); Blood Urea Nitrogen 16 mg/dL (6-20); Calcium 9.1 mg/dL (8.6-10.3); Carbon Dioxide 21 mEq/L (23-29); Chloride 104 mEq/L (98-107); Chol/HDL Ratio 5.6 (0-4.9); Cholesterol 197 mg/dL (< 200); Glucose 114 mg/dL (70-105); HDL Cholesterol 35 mg/dL (40-59); Magnesium 1.9 mg/dL (1.6-2.6); Osmolality,Calculated 282 (280-300); Potassium 4.2 mEq/L (3.5-5.1); Sodium 135 mEq/L (136-145); Triglycerides 410 mg/dL (< 150); eGFR For African Americans > 60 (> 60); eGFR For Non-African Americans > 60 (> 60)
[2019-04-13] MEDS ORDERED: 0.9 % Sodium Chloride 1,000 ML IVC SCH (05:00)
[2019-04-13] MEDS ORDERED: *HR* Warfarin 7.5 MG TABLET PO ONE (05:30)
[2019-04-13 09:34] LABS: Estimated Average Glucose 143 mg/dl
[2019-04-13] MEDS ORDERED: Warfarin perPT PO PRN (18:00)
[2019-04-13] MEDS: Budesonide/Formoterol 80/4.5 1 PUFF INH IH SCH (20:44)
[2019-04-13] MEDS: *HR* HYDROcodone/Acet 5/325 mg TABLET PO PRN (21:11)
[2019-04-14 02:26] LABS: INR 1.7; Prothrombin Time 18.9 Seconds (9.4-12.1)
[2019-04-14 02:27] LABS: BUN/Creatinine Ratio 15 (6-26); Blood Urea Nitrogen 17 mg/dL (6-20); Calcium 9.3 mg/dL (8.6-10.3); Carbon Dioxide 24 mEq/L (23-29); Chloride 101 mEq/L (98-107); Glucose 128 mg/dL (70-105); Osmolality,Calculated 285 (280-300); Potassium 3.8 mEq/L (3.5-5.1); Sodium 136 mEq/L (136-145); eGFR For African Americans > 60 (> 60); eGFR For Non-African Americans > 60 (> 60)
[2019-04-14 02:48] LABS: Hemoglobin 16.1 g/dL (12.9-16.9); Mean Corpuscular HGB Conc 34.3 g/dL (31.6-35.5); Mean Corpuscular Hemoglobin 30.1 pg (28.0-33.3); Mean Platelet Volume 10.9 fL (9.4-12.4); Platelet Count 191 K/mcL (140-400); Red Blood Count 5.34 M/mcL (4.19-5.50); Red Cell Distribution Width 13.2 % (11.5-14.5); White Blood Count 7.8 K/mcL (4.3-11.1)
[2019-04-14] MEDS ORDERED: *HR* Metoprolol 5 MG/5 ML VIAL IVP ONE ×2 (05:39→05:57)
[2019-04-14] MEDS: Heparin 25,000 UNIT/250 ML D5W 25,000 UNIT/250 ML IV.SOLN IVC SCH ×2 (06:04→22:59)
[2019-04-14] MEDS: Budesonide/Formoterol 80/4.5 1 PUFF INH IH SCH ×2 (07:45→19:40)
[2019-04-14] MEDS: FLUoxetine 20 MG CAPSULE PO SCH (09:10)
[2019-04-14] MEDS: Famotidine 20 MG TABLET PO SCH (09:10)
[2019-04-14] MEDS: Aspirin Enteric Coated 81 MG Tablet PO SCH (09:10)
[2019-04-14] MEDS ORDERED: Perflutren Lipid Microsphere 1.3 ML in 0.9 % Sodium Chloride 8.7 ML IVP ONE (14:26)
[2019-04-14] MEDS ORDERED: *HR* Warfarin 5 MG TABLET PO SCH (18:00)
[2019-04-14] MEDS ORDERED: *HR* Warfarin 5 MG TABLET PO ONE (18:00)
[2019-04-14] MEDS: DilTIAZem 50 MG in 0.9 % Sodium Chloride 40 ML IVC SCH (21:57)
[2019-04-14] MEDS: *HR* HYDROcodone/Acet 5/325 mg TABLET PO PRN (22:58)
[2019-04-15 02:43] LABS: INR 1.6; Prothrombin Time 18.5 Seconds (9.4-12.1)
[2019-04-15 02:58] LABS: BUN/Creatinine Ratio 17 (6-26); Blood Urea Nitrogen 18 mg/dL (6-20); Calcium 9.7 mg/dL (8.6-10.3); Carbon Dioxide 23 mEq/L (23-29); Chloride 102 mEq/L (98-107); Glucose 124 mg/dL (70-105); Osmolality,Calculated 281 (280-300); Potassium 4.2 mEq/L (3.5-5.1); Sodium 134 mEq/L (136-145); eGFR For African Americans > 60 (> 60); eGFR For Non-African Americans > 60 (> 60)
[2019-04-15] MEDS: Budesonide/Formoterol 80/4.5 1 PUFF INH IH SCH (07:39)
[2019-04-15] MEDS: Aspirin Enteric Coated 81 MG Tablet PO SCH (08:51)
[2019-04-15] MEDS: FLUoxetine 20 MG CAPSULE PO SCH (08:52)
[2019-04-15] MEDS: Famotidine 20 MG TABLET PO SCH (08:52)
[2019-04-15] MEDS: Acetaminophen 325 MG TABLET PO PRN (08:56)
[2019-04-15 15:43] VITALS: BP 133/91
[2019-04-15] MEDS ORDERED: *HR* Rivaroxaban 15 MG TABLET PO SCH ×2 (16:00→21:00)
[2019-04-15] MEDS: Heparin 25,000 UNIT/250 ML D5W 25,000 UNIT/250 ML IV.SOLN IVC SCH (16:23)
[2019-04-15] MEDS ORDERED: *HR* Warfarin 7.5 MG TABLET PO ONE (18:00)
== END 2019-04-15 18:45 | disposition home or self-care (01) ==
LOC: 2NENU → SUATTDRO 21:54
PROVIDERS: ADMIT Student in an Organized Health Care Education/Training Program; ATTEND Internal Medicine

== ENCOUNTER 2019-05-04 10:39 | Observation (INO) ==
[~2019-05-04 10:39] MED LIST: Naloxone 0.4 MG/ML INJ IVP PRN
[2019-05-04] MEDS ORDERED: hydrOXYzine pamoate 25 MG CAPSULE PO PRN (10:41)
[2019-05-04] MEDS ORDERED: *HR* HYDROcodone/Acet 5/325 mg TABLET PO PRN (10:41)
[2019-05-04] MEDS ORDERED: *HR* Heparin 5,000 UNIT/ML VIAL IVP ONE (10:44)
[2019-05-04] MEDS ORDERED: *HR* Heparin 5,000 UNIT/ML VIAL IVP PRN ×2 (10:44)
[2019-05-04] MEDS ORDERED: Heparin 25,000 UNIT/250 ML D5W 25,000 UNIT/250 ML IV.SOLN IVC SCH ×2 (10:45→21:15)
[2019-05-04] MEDS: FLUoxetine 20 MG CAPSULE PO SCH (12:39)
[2019-05-04] MEDS: Aspirin Enteric Coated 81 MG Tablet PO SCH (12:40)
[2019-05-04] MEDS: Famotidine 20 MG TABLET PO SCH (12:40)
[2019-05-04 14:07] LABS: INR 1.1
[2019-05-04 14:10] LABS: Activated Partial Thrombo Time 29.2 Seconds (26.0-36.0)
[2019-05-04 14:22] LABS: Hematocrit 46.3 % (37.5-50.1); Hemoglobin 15.7 g/dL (12.9-16.9); Mean Corpuscular HGB Conc 33.9 g/dL (31.6-35.5); Mean Corpuscular Hemoglobin 30.1 pg (28.0-33.3); Mean Corpuscular Volume 88.7 fL (83.0-100.0); Mean Platelet Volume 10.6 fL (9.4-12.4); Platelet Count 162 K/mcL (140-400); Red Blood Count 5.22 M/mcL (4.19-5.50); Red Cell Distribution Width 13.2 % (11.5-14.5); White Blood Count 5.2 K/mcL (4.3-11.1)
[2019-05-04] MEDS: Budesonide/Formoterol 80/4.5 1 PUFF INH IH SCH (21:49)
[2019-05-05 03:59] LABS: Basophils # 0.1 K/mcL (0.0-0.2); Basophils % 0.9 %; Eosinophils # 0.2 K/mcL (0.0-0.6); Eosinophils % 2.7 %; Hemoglobin 16.2 g/dL (12.9-16.9); Immature Granulocytes % 1.5 % (0-4); Lymphocytes # 2.4 K/mcL (0.6-4.6); Lymphocytes % 35.9 %; Mean Corpuscular HGB Conc 33.8 g/dL (31.6-35.5); Mean Corpuscular Hemoglobin 30.1 pg (28.0-33.3); Mean Corpuscular Volume 89.2 fL (83.0-100.0); Mean Platelet Volume 10.4 fL (9.4-12.4); Monocytes # 0.6 K/mcL (0.0-1.3); Monocytes % 9.5 %; Neutrophils # 3.3 K/mcL (1.6-8.9); Platelet Count 164 K/mcL (140-400); Red Blood Count 5.38 M/mcL (4.19-5.50); Red Cell Distribution Width 13.4 % (11.5-14.5); Segmented Neutrophils % 49.5 %; White Blood Count 6.7 K/mcL (4.3-11.1)
[2019-05-05 04:14] LABS: BUN/Creatinine Ratio 13 (6-26); Blood Urea Nitrogen 19 mg/dL (6-20); Calcium 9.3 mg/dL (8.6-10.3); Carbon Dioxide 28 mEq/L (23-29); Chloride 102 mEq/L (98-107); Glucose 124 mg/dL (70-105); Osmolality,Calculated 280 (280-300); Potassium 3.8 mEq/L (3.5-5.1); Sodium 133 mEq/L (136-145); eGFR For African Americans > 60 (> 60); eGFR For Non-African Americans 52 (> 60)
[2019-05-05] MEDS: Budesonide/Formoterol 80/4.5 1 PUFF INH IH SCH (07:49)
[2019-05-05] MEDS: Aspirin Enteric Coated 81 MG Tablet PO SCH (08:01)
[2019-05-05] MEDS: FLUoxetine 20 MG CAPSULE PO SCH (08:01)
[2019-05-05] MEDS: Famotidine 20 MG TABLET PO SCH (08:01)
[2019-05-05] MEDS ORDERED: Heparin 1,000 UNITS/500 mL 500 ML ONE (08:31)
[2019-05-05] MEDS ORDERED: 0.9 % Sodium Chloride 2,000 ML ONE (08:31)
[2019-05-05] MEDS ORDERED: ISOVUE-370 200 ML INFUS..BTL ONE (08:31)
[2019-05-05] MEDS ORDERED: *HR* Heparin 10,000 UNIT/10 ML VIAL ONE (08:31)
[2019-05-05] MEDS ORDERED: Nitroglycerin 1,000 MCG/10 ML VIAL IV ONE (08:32)
[2019-05-05] MEDS ORDERED: *HR* Midazolam HCl 2 MG/2 ML VIAL ONE (08:57)
[2019-05-05] MEDS ORDERED: *HR* FentaNYL (PF) 100 MCG/2 ML VIAL ONE (08:58)
[2019-05-05] MEDS ORDERED: *HR* Rivaroxaban 10 MG TABLET PO SCH (12:00)
[2019-05-05 13:54] VITALS: BP 106/77
== END 2019-05-05 15:07 | disposition home or self-care (01) ==
LOC: 3ANU → EDSTATUS 05-05 09:00
PROVIDERS: ADMIT Internal Medicine Cardiovascular Disease; ATTEND Internal Medicine Cardiovascular Disease